=== PATIENT | female | born 1965 | race Caucasian/White ===

== ENCOUNTER 2016-08-11 00:18 | Emergency (ER) | payer MEDICARE, MEDICAID | END 2016-08-11 01:20 | disposition home or self-care (01) | LOC: D.ER 00:18 | DX: F41.9 Anxiety disorder, unspecified (principal); F31.9 Bipolar disorder, unspecified; M54.5 Low back pain; M51.36 Other intervertebral disc degeneration, lumbar region; F17.200 Nicotine dependence, unspecified, uncomplicated ==

== ENCOUNTER 2017-01-22 13:00 | Emergency (ER) | payer MEDICARE, MEDICAID ==
[2017-01-22 13:26] LABS: BASOPHILS 0.2 % (0-2); EOSINOPHILS 0.9 % (0-7); HEMOGLOBIN 14.7 g/dL (12-16); IMMATURE GRANULOCYTES 0.2 % (0-5); LYMPHOCYTES 14.8 % (15-50); MCH 29.6 pg (26.0-34.0); MCHC 34.2 g/dL (31.0-37.0); MCV 86.7 fL (80.0-100.0); MEAN PLATELET VOLUME 9.8 fL (7.4-10.4); MONOCYTES 2.8 % (2-11); NEUTROPHILS 81.1 % (40-80); PLATELET COUNT 218 10x3/uL (130-400); RBC 4.96 10x6/uL (4.00-5.40); RDW 13.3 % (11.5-14.5); WBC 8.2 10x3/uL (4.8-10.8)
[2017-01-22 13:56] LABS: APPEARANCE CLEAR (CLEAR); BILIRUBIN NEGATIVE (NEGATIVE); COLOR STRAW (YELLOW); GLUCOSE NEGATIVE (NEGATIVE); KETONE NEGATIVE (NEGATIVE); LEUKOCYTE ESTERASE NEGATIVE (NEGATIVE); NITRITE NEGATIVE (NEGATIVE); PROTEIN NEGATIVE (NEGATIVE); SPECIFIC GRAVITY 1.005 (1.005-1.020); UROBILINOGEN NORMAL (NORMAL)
[2017-01-22 14:03] LABS: INR 0.97 (0.85-1.17); PROTIME 12.8 SECONDS (11.6-15.0)
[2017-01-22 14:04] LABS: ALBUMIN 3.7 g/dL (3.4-5.0); ALKALINE PHOSPHATASE 79 U/L (46-116); ALT (SGPT) 26 U/L (10-68); CALC OSMOLALITY 280 mosm/kg (275-300); CALCIUM 9.2 mg/dL (8.5-10.1); CARBON DIOXIDE 26.7 mmol/L (21.0-32.0); CHLORIDE - SERUM 104 mmol/L (98-107); CREATININE - SERUM 0.7 mg/dL (0.6-1.3); GLUCOSE 113 mg/dL (74-106); POTASSIUM - SERUM 3.7 mmol/L (3.5-5.1); PROTEIN - SERUM 6.8 g/dL (6.4-8.2); SODIUM 141 mmol/L (136-145); UREA NITROGEN 11 mg/dL (7-18); eGFR NON AFRICAN AMERICAN > 90 mL/min (90-120)
[2017-01-22 14:06] LABS: UDS - AMPHET NEGATIVE QUAL (NEGATIVE); UDS - BARB NEGATIVE QUAL (NEGATIVE); UDS - BENZO NEGATIVE QUAL (NEGATIVE); UDS - COCAINE NEGATIVE QUAL (NEGATIVE); UDS - METH NEGATIVE QUAL (NEGATIVE); UDS - OPIATE NEGATIVE QUAL (NEGATIVE); UDS - PCP NEGATIVE QUAL (NEGATIVE); UDS - THC NEGATIVE QUAL (NEGATIVE)
[2017-01-22 14:10] LABS: CREATINE KINASE 86 UL (21-215); TROPONIN-I < 0.017 ng/mL (0.000-0.060)
== END 2017-01-22 20:30 | disposition home or self-care (01) ==
LOC: D.ER 13:00
PROVIDERS: Emergency Medicine
DX: F41.9 Anxiety disorder, unspecified (principal); R21 Rash and other nonspecific skin eruption

== ENCOUNTER 2019-05-05 21:49 | Inpatient (IN) | payer MEDICARE, MEDICAID ==
[~2019-05-05] VITALS: Ht 165.1 cm; Wt 71.7 kg
[2019-05-05] MEDS ORDERED: LEXAPRO5 MG PO (21:55)
[2019-05-05] MEDS ORDERED: TOPROL XL25 MG (21:55)
[2019-05-05] MEDS ORDERED: XANAX1 MG PO (21:55)
[2019-05-05 22:14] LABS: BASOPHILS 0.1 % (0-2); EOSINOPHILS 0.2 % (0-7); HEMATOCRIT 48.3 % (36.0-48.0); HEMOGLOBIN 17.5 g/dL (12-16); IMMATURE GRANULOCYTES 0.3 % (0-5); LYMPHOCYTES 13.1 % (15-50); MCH 30.8 pg (26.0-34.0); MCHC 36.2 g/dL (31.0-37.0); MEAN PLATELET VOLUME 9.2 fL (7.4-10.4); NEUTROPHILS 79.3 % (40-80); RBC 5.68 10x6/uL (4.00-5.40); RDW 12.5 % (11.5-14.5); WBC 19.3 10x3/uL (4.8-10.8)
[2019-05-05 22:15] LABS: PLATELET COUNT 290 10x3/uL (130-400)
[2019-05-05 22:36] LABS: ALBUMIN 4.4 g/dL (3.4-5.0); ALKALINE PHOSPHATASE 85 U/L (46-116); ALT (SGPT) 41 U/L (10-68); BILIRUBIN - TOTAL 1.17 mg/dL (0.2-1.3); CALC OSMOLALITY 284 mosm/kg (275-300); CALCIUM 9.8 mg/dL (8.5-10.1); CARBON DIOXIDE 30.9 mmol/L (21.0-32.0); CHLORIDE - SERUM 102 mmol/L (98-107); CREATININE - SERUM 0.8 mg/dL (0.6-1.3); GLUCOSE 117 mg/dL (74-106); POTASSIUM - SERUM 3.1 mmol/L (3.5-5.1); PROTEIN - SERUM 8.9 g/dL (6.4-8.2); SODIUM 141 mmol/L (136-145); UREA NITROGEN 20 mg/dL (7-18); eGFR NON AFRICAN AMERICAN 80 mL/min (90-120)
[2019-05-05 22:47] LABS: AMYLASE - SERUM 79 U/L (25-115); CKMB 1.5 U/L (0.0-3.6); CREATINE KINASE 80 UL (21-215); LIPASE 125 U/L (73-393); TROPONIN-I < 0.017 ng/mL (0.000-0.060)
--- NOTE | 2019-05-06 00:25 | NUR ---
URINE TO THE LAB
--- NOTE | 2019-05-06 00:25 | NUR ---
NEIGHBOR, SONIA ALEXANDER [phone] WILL COME PICK HER UP WHEN NEEDED.
[2019-05-06 00:36] LABS: APPEARANCE CLEAR (CLEAR); COLOR DK YELLOW (YELLOW); GLUCOSE NEGATIVE (NEGATIVE); NITRITE NEGATIVE (NEGATIVE); PROTEIN 2+ mg/dL (NEGATIVE)
[2019-05-06 00:37] LABS: BILIRUBIN NEGATIVE (NEGATIVE); KETONE NEGATIVE (NEGATIVE); UROBILINOGEN NORMAL (NORMAL)
[2019-05-06 00:38] LABS: BACTERIA FEW /hpf (NEGATIVE); EPITHELIAL CELLS 0-5 /hpf (0-5); MUCUS <1+ /lpf (NONE SEEN); RED CELLS - URINE 0-5 /hpf (0-5); WHITE CELLS - URINE 0-5 /hpf (NEGATIVE)
[2019-05-06 00:52] LABS: UDS - AMPHET POSITIVE QUAL (NEGATIVE); UDS - BARB NEGATIVE QUAL (NEGATIVE); UDS - BENZO POSITIVE QUAL (NEGATIVE); UDS - COCAINE NEGATIVE QUAL (NEGATIVE); UDS - OPIATE POSITIVE QUAL (NEGATIVE); UDS - PCP NEGATIVE QUAL (NEGATIVE); UDS - THC NEGATIVE QUAL (NEGATIVE)
[2019-05-06] MEDS ORDERED: ST. JOHN'S WOR300 MG PO (03:01)
[2019-05-06] MEDS ORDERED: MELATONIN5 M3 PO (03:02)
[2019-05-06 03:27] VITALS: BP 141/77; BMI 26.3
[2019-05-06 04:00] VITALS: BP 141/77
[2019-05-06 06:32] LABS: BASOPHILS 0.1 % (0-2); EOSINOPHILS 0.4 % (0-7); HEMOGLOBIN 14.6 g/dL (12-16); IMMATURE GRANULOCYTES 0.2 % (0-5); LYMPHOCYTES 20.6 % (15-50); MCH 30.3 pg (26.0-34.0); MCHC 34.8 g/dL (31.0-37.0); MEAN PLATELET VOLUME 9.1 fL (7.4-10.4); MONOCYTES 8.9 % (2-11); NEUTROPHILS 69.8 % (40-80); PLATELET COUNT 237 10x3/uL (130-400); RBC 4.82 10x6/uL (4.00-5.40); RDW 12.7 % (11.5-14.5)
[2019-05-06 06:34] LABS: MCV 87.1 fL (80.0-100.0)
[2019-05-06 07:00] LABS: ALBUMIN 3.4 g/dL (3.4-5.0); ALKALINE PHOSPHATASE 71 U/L (46-116); ALT (SGPT) 34 U/L (10-68); AMYLASE - SERUM 106 U/L (25-115); BILIRUBIN - TOTAL 0.99 mg/dL (0.2-1.3); CALC OSMOLALITY 288 mosm/kg (275-300); CALCIUM 8.6 mg/dL (8.5-10.1); CARBON DIOXIDE 30.9 mmol/L (21.0-32.0); CHLORIDE - SERUM 106 mmol/L (98-107); CREATININE - SERUM 0.8 mg/dL (0.6-1.3); GLUCOSE 107 mg/dL (74-106); LIPASE 253 U/L (73-393); POTASSIUM - SERUM 3.5 mmol/L (3.5-5.1); SODIUM 144 mmol/L (136-145); UREA NITROGEN 18 mg/dL (7-18); eGFR NON AFRICAN AMERICAN 80 mL/min (90-120)
[2019-05-06 08:47] VITALS: BP 113/72
[2019-05-06 13:13] VITALS: Ht 165.1 cm; Wt 71.7 kg
[2019-05-06 13:38] VITALS: BP 103/62
[2019-05-06 16:45] VITALS: BP 119/64
[2019-05-06 20:00] VITALS: BP 121/70
[2019-05-07] VITALS: BP 115/75
[2019-05-07 04:00] VITALS: BP 118/69
--- NOTE | 2019-05-07 07:15 | NUR ---
BEDSIDE REPORT RECIEVED, PATIENT SITTING UP IN BED WITH NO COMPLAINTS. IV INTACT. REFUSED NGT LAST NIGHT AFTER CAME OUT. PATIENT SCDS NOT ON. NEEDS MACHINE. CALL LIGHT WITHIN REACH.
[2019-05-07 07:35] LABS: BASOPHILS 0.2 % (0-2); EOSINOPHILS 1.4 % (0-7); HEMATOCRIT 38.1 % (36.0-48.0); HEMOGLOBIN 12.9 g/dL (12-16); IMMATURE GRANULOCYTES 0.3 % (0-5); LYMPHOCYTES 17.9 % (15-50); MCH 30.1 pg (26.0-34.0); MCHC 33.9 g/dL (31.0-37.0); MEAN PLATELET VOLUME 9.1 fL (7.4-10.4); MONOCYTES 5.4 % (2-11); NEUTROPHILS 74.8 % (40-80); PLATELET COUNT 192 10x3/uL (130-400); RBC 4.28 10x6/uL (4.00-5.40); RDW 12.9 % (11.5-14.5); WBC 10.3 10x3/uL (4.8-10.8)
[2019-05-07 07:52] LABS: CALCIUM 8.3 mg/dL (8.5-10.1); CHLORIDE - SERUM 104 mmol/L (98-107); GLUCOSE 76 mg/dL (74-106); POTASSIUM - SERUM 3.5 mmol/L (3.5-5.1); SODIUM 138 mmol/L (136-145)
[2019-05-07 08:03] LABS: CALC OSMOLALITY 274 mosm/kg (275-300); CARBON DIOXIDE 22.4 mmol/L (21.0-32.0); CREATININE - SERUM 0.5 mg/dL (0.6-1.3); UREA NITROGEN 13 mg/dL (7-18); eGFR NON AFRICAN AMERICAN > 90 mL/min (90-120)
[2019-05-07 08:46] VITALS: BP 116/72
--- NOTE | 2019-05-07 10:15 | NUR ---
PATIENT IN BED WITH IV INTACT. WAITING TO GET BARIUM SWALLOW. CALL LIGHT WITHIN REACH.
--- NOTE | 2019-05-07 11:19 | NUR ---
PATIENT IN BED WITH IV INTACT. NO COMPLAINTS OR SIGNS OF DISTRESS. TELE ON. CALL LIGHT WITHIN REACH.
[2019-05-07 12:54] LABS: MAGNESIUM - SERUM 1.6 mg/dL (1.8-2.4); PHOSPHOROUS 3.4 mg/dL (2.5-4.9)
[2019-05-07 13:54] VITALS: BP 117/67
--- NOTE | 2019-05-07 14:50 | NUR ---
PATIENT IN BED WITH IV INTACT. NO COMPLAINTS. CALL LIGHT WITHIN REACH.
[2019-05-07 16:47] VITALS: BP 115/61
--- NOTE | 2019-05-07 19:24 | NUR ---
PATIENT IN BED WITH IV INTACT. NO COMPLAINTS. CALL LIGHT WITHIN REACH. BEDSIDE REPORT GIVEN.
[2019-05-07 19:46] VITALS: BP 110/62
--- NOTE | 2019-05-07 20:00 | NUR ---
RESTING IN BED ALERT AND ORIENTIATED, DENIES NAUSEA OR VOMITING, GOOD BOWEL SOUNDS STATES HAD BM EARLIER TODAY, DENIES PAIN HAS DILAUDID ADOPTION MANAGER IN USE, SEE SHIFT ASSESSMENT, CALL LIGHT IN REACH, FAMILY MEMBER AT BEDSIDE
[2019-05-08 04:00] VITALS: BP 124/73
[2019-05-08 07:48] LABS: BASOPHILS 0.2 % (0-2); EOSINOPHILS 1.1 % (0-7); HEMATOCRIT 38.6 % (36.0-48.0); HEMOGLOBIN 13.5 g/dL (12-16); IMMATURE GRANULOCYTES 0.1 % (0-5); LYMPHOCYTES 19.7 % (15-50); MCH 30.2 pg (26.0-34.0); MEAN PLATELET VOLUME 9.3 fL (7.4-10.4); MONOCYTES 4.9 % (2-11); PLATELET COUNT 216 10x3/uL (130-400); RBC 4.47 10x6/uL (4.00-5.40); RDW 12.5 % (11.5-14.5)
[2019-05-08 07:49] LABS: MCV 86.4 fL (80.0-100.0)
--- NOTE | 2019-05-08 08:00 | NUR ---
PATIENT IN BED WITH IV INTACT. NO COMPLAINTS OR SIGNS OF DISTRESS. FAMILY AT BEDSIDE. CALL LIGHT WITHIN REACH.
[2019-05-08 08:12] LABS: CALC OSMOLALITY 280 mosm/kg (275-300); CALCIUM 8.3 mg/dL (8.5-10.1); CARBON DIOXIDE 26.5 mmol/L (21.0-32.0); CHLORIDE - SERUM 106 mmol/L (98-107); CREATININE - SERUM 0.6 mg/dL (0.6-1.3); GLUCOSE 110 mg/dL (74-106); MAGNESIUM - SERUM 1.9 mg/dL (1.8-2.4); POTASSIUM - SERUM 3.7 mmol/L (3.5-5.1); SODIUM 141 mmol/L (136-145); eGFR NON AFRICAN AMERICAN > 90 mL/min (90-120)
[2019-05-08 08:25] LABS: UREA NITROGEN 9 mg/dL (7-18)
[2019-05-08 09:06] VITALS: BP 126/65
--- NOTE | 2019-05-08 11:00 | NUR ---
PATIENT RECIEVED FULL LIQUIDS. TOLERATING WITH NO PROBLEMS. IV INTACT. NO COMPLAINTS. CALL LIGHT WITHIN REACH.
[2019-05-08 12:52] VITALS: BP 122/72
[2019-05-08 15:49] VITALS: BP 109/51
[2019-05-08 20:00] VITALS: BP 119/72
--- NOTE | 2019-05-08 20:00 | NUR ---
RESTING IN BED EYES CLOSED RESP UNLABORED NO APPARENT DISTRESS, CALL LIGHT IN REACH
[2019-05-09] VITALS: BP 105/60
[2019-05-09 04:00] VITALS: BP 110/64
[2019-05-09 06:15] LABS: BASOPHILS 0.3 % (0-2); EOSINOPHILS 2.3 % (0-7); HEMATOCRIT 40.5 % (36.0-48.0); HEMOGLOBIN 13.9 g/dL (12-16); IMMATURE GRANULOCYTES 0.2 % (0-5); LYMPHOCYTES 31.8 % (15-50); MCH 30.2 pg (26.0-34.0); MCHC 34.3 g/dL (31.0-37.0); MEAN PLATELET VOLUME 10.1 fL (7.4-10.4); MONOCYTES 7.1 % (2-11); NEUTROPHILS 58.3 % (40-80); PLATELET COUNT 201 10x3/uL (130-400); RDW 12.8 % (11.5-14.5)
[2019-05-09 06:21] LABS: WBC 6.2 10x3/uL (4.8-10.8)
[2019-05-09 06:28] LABS: CALC OSMOLALITY 280 mosm/kg (275-300); CALCIUM 8.4 mg/dL (8.5-10.1); CARBON DIOXIDE 28.9 mmol/L (21.0-32.0); CHLORIDE - SERUM 107 mmol/L (98-107); CREATININE - SERUM 0.5 mg/dL (0.6-1.3); GLUCOSE 105 mg/dL (74-106); POTASSIUM - SERUM 3.8 mmol/L (3.5-5.1); SODIUM 142 mmol/L (136-145); UREA NITROGEN 8 mg/dL (7-18); eGFR NON AFRICAN AMERICAN > 90 mL/min (90-120)
--- NOTE | 2019-05-09 08:00 | NUR ---
ASSESSMENT PER FLOW SHEET. PT IS WITHOUT DISTRESS.CALL LIGHT IN REACH.
[2019-05-09 08:29] VITALS: BP 123/57
--- NOTE | 2019-05-09 12:29 | NUR ---
WILL GIVE MEDS WHEN PATIENT WAKES UP, PER FAMILY REQUEST.
--- NOTE | 2019-05-09 12:30 | NUR ---
PT IS WITHOUT NEEDS.CALL LIGHT IN REACH
[2019-05-09 12:51] VITALS: BP 118/56
[2019-05-09 16:42] VITALS: BP 131/62
--- NOTE | 2019-05-09 17:36 | MORECARE ---
CASE MANAGEMENT DISCHARGE SUMMARY PATIENT: NEHA CLEMENTS UNIT: [id number] ADM DATE: 05/06/19 AGE: 53 : 67 SEX: F ROOM/BED: D.2214 AUTHOR: KACEY VARGAS PHYSICIAN: REFERRING PHYSICIAN: SIVA MARQUEZ MD DATE OF SERVICE: 05/09/19 Discharge Plan Patient Name: NEHA CLEMENTS Facility: [facility]:[place] : 1965 Planned Disposition: Home Anticipated Discharge Date: Discharge Date: Expected LOS: Initial Reviewer: [email or web address] Initial Review Date: 05/09/2019 Generated: 05/09/19 6:36 pm Comments DCP- Discharge Planning Updated by [email or web address]: Darlene eBck on 05/09/19 4:[address] Patient Name: NEHA CLEMENTS Admission Status: ER Accout number: [id number] Admission Date: 05-06-2019 : 1965 Admission Diagnosis:UNSPECIFIED ABDOMINAL PAIN Attending: SIVA MARQUEZ Current LOS: 3 Anticipated DC Date: Planned Disposition: Home Primary Insurance: [facility] MED[employer] SOLUTIONS Discharge Planning Comments: CM MET WITH PATIENT ABOUT DC PLANNING/NEEDS. STATES IS INDEPENDANT AND PLANS TO DC TO HOME. DENIES NEED FOR REHAB, HH OR EQUIPMENT. CM TO FOLLOW AND ASSIST. Check And Transfer Beader: Darlene Beck DCPIA - Discharge Planning Initial Assessment Updated by [id number]: Darlene Beck on 05/09/19 5:33 pm * Is the patient Alert and Oriented? Yes * PCP NEW PCP APPT ON 05/24 * [facility] * Preadmission Environment Home with Family * ADLs Independent * Equipment None * List name and contact numbers for known caregivers / representatives who currently or will assist patient after discharge: MOTHER SALVADOR, * Community resources currently utilized None * Additional services required to return to the preadmission environment? No * Can the patient safely return to the preadmission environment? Yes * Has this patient been hospitalized within the prior 30 days at any hospital? No Patient Name: NEHA CLEMENTS Page [id number] at 1736 All edits/amendments must be made on the electronic document DICTATION DATE: 05/09/191735 [place]UM[place] OPERATOR: NARCISA 05/09/191735 RPT#: [id number] DC DATE: STATUS: ADM IN [facility] [address] [place] [address] END OF REPORT
--- NOTE | 2019-05-09 19:30 | NUR ---
A&O X 4, AMBULATING INDEPENDENTLY IN BED. DENIES PAIN AT THIS TIME, DENIES NEEDS AT THIS TIME. WILL CONTINUE TO MONITOR.
[2019-05-09 20:00] VITALS: BP 122/78
[2019-05-10] VITALS: BP 112/69
[2019-05-10 06:27] LABS: CALC OSMOLALITY 280 mosm/kg (275-300); CARBON DIOXIDE 26.8 mmol/L (21.0-32.0); CHLORIDE - SERUM 105 mmol/L (98-107); CREATININE - SERUM 0.6 mg/dL (0.6-1.3); GLUCOSE 100 mg/dL (74-106); POTASSIUM - SERUM 3.9 mmol/L (3.5-5.1); SODIUM 141 mmol/L (136-145); eGFR NON AFRICAN AMERICAN > 90 mL/min (90-120)
[2019-05-10 06:28] LABS: UREA NITROGEN 12 mg/dL (7-18)
[2019-05-10 06:36] LABS: BASOPHILS 0.2 % (0-2); EOSINOPHILS 2.4 % (0-7); HEMATOCRIT 41.3 % (36.0-48.0); HEMOGLOBIN 14.3 g/dL (12-16); IMMATURE GRANULOCYTES 0.2 % (0-5); LYMPHOCYTES 31.9 % (15-50); MCH 30.2 pg (26.0-34.0); MCHC 34.6 g/dL (31.0-37.0); MCV 87.1 fL (80.0-100.0); MEAN PLATELET VOLUME 10.1 fL (7.4-10.4); MONOCYTES 4.5 % (2-11); NEUTROPHILS 60.8 % (40-80); PLATELET COUNT 220 10x3/uL (130-400); RBC 4.74 10x6/uL (4.00-5.40); RDW 12.8 % (11.5-14.5)
[2019-05-10 06:39] LABS: WBC 8.2 10x3/uL (4.8-10.8)
--- NOTE | 2019-05-10 08:00 | NUR ---
ASSESSMENT PER FLOW SHEET. PT IS WITHOUT DISTRESS.CALL LIGHT IN REACH.
[2019-05-10 08:47] VITALS: BP 119/67
[2019-05-10] MEDS ORDERED: Nicoderm [PBKC] TRANSDERM (10:34)
--- NOTE | 2019-05-10 12:01 | NUR ---
PT WISHES TO GET FLU SHOT FROM [facility] OR [facility]. DISCHARGE INSTRUCTIONS,STATES UNDERSTANDING. WAITING ON RIDE.
--- NOTE | 2019-05-10 12:21 | NUR ---
RIDE HERE. PT LEFT UNIT ABULATORY. DECLINES WHEELCHAIR
--- NOTE | 2019-05-10 17:35 | MORECARE ---
CASE MANAGEMENT DISCHARGE SUMMARY PATIENT: NEHA CLEMENTS UNIT: [id number] ADM DATE: 05/06/19 AGE: 53 : 67 SEX: F ROOM/BED: D.2214 AUTHOR: ALICIADOC PHYSICIAN: REFERRING PHYSICIAN: SIVA MARQUEZ MD DATE OF SERVICE: 05/10/19 Discharge Plan Patient Name: NEHA CLEMENTS Facility: [facility]:[place] : 1965 Planned Disposition: Home Anticipated Discharge Date: Discharge Date: 05/10/2019 Expected LOS: Initial Reviewer: [email or web address] Initial Review Date: 05/09/2019 Generated: 05/10/19 6:35 pm Comments DCP- Discharge Planning Updated by [email or web address]: Darlene Beck on 05/09/19 4:[address] Patient Name: NEHA CLEMENTS Admission Status: ER Accout number: [id number] Admission Date: 05-06-2019 : 1965 Admission Diagnosis:UNSPECIFIED ABDOMINAL PAIN Attending: SIVA MARQUEZ Current LOS: 3 Anticipated DC Date: Planned Disposition: Home Primary Insurance: [facility] MEDICARE SOLUTIONS Discharge Planning Comments: CM MET WITH PATIENT ABOUT DC PLANNING/NEEDS. STATES IS INDEPENDANT AND PLANS TO DC TO HOME. DENIES NEED FOR REHAB, HH OR EQUIPMENT. CM TO FOLLOW AND ASSIST. Director Radio News: Darlene Beck DCPIA - Discharge Planning Initial Assessment Updated by [id number]: Darlene Beck on 05/09/19 5:33 pm * Is the patient Alert and Oriented? Yes * PCP NEW PCP APPT ON 05/24 * Pharm[facility] * Preadmission Environment Home with Family * ADLs Independent * Equipment None * List name and contact numbers for known caregivers / representatives who currently or will assist patient after discharge: MOTHER SALVADOR, * Community resources currently utilized None * Additional services required to return to the preadmission environment? No * Can the patient safely return to the preadmission environment? Yes * Has this patient been hospitalized within the prior 30 days at any hospital? No Coverage Notice Reviewer: [id number] Shemar Beck Notice Issued Date-Time: 05/10/2019 11:03 Notice Type: IM Discharge Notice Notice Delivered To: Patient Relationship to Patient: Clinique Counter Manager Name: Delivery Method: HAND - Hand Delivered Alise Days: Prior Verbal Notification: Recipient Understood Notice: Yes Recipient Signature: Yes Med Rec Note Co-signed by Attending: Coverage Notice Comment: Last DP export: 05/09/19 4:36 p Patient Name: NEHA CLEMENTS Page [id number] at 1735 All edits/amendments must be made on the electronic document DICTATION DATE: 05/10/191734 [employer]: NARCISA 05/10/191734 RPT#: [id number] DC DATE:05/10/19 STATUS: DIS IN [facility] [address] [place] [address] END OF REPORT
== END 2019-05-10 12:21 | disposition home or self-care (01) | DRG 389 ==
LOC: D.ER 21:49 → D.MS 05-06 01:47
PROVIDERS: Family Medicine; ADMIT Internal Medicine Nephrology; ATTEND Internal Medicine Nephrology
DX: K56.50 Intestinal adhesions [bands], unspecified as to partial versus complete obstruction (principal); F17.213 Nicotine dependence, cigarettes, with withdrawal; K76.9 Liver disease, unspecified; F15.10 Other stimulant abuse, uncomplicated; I10 Essential (primary) hypertension; E87.6 Hypokalemia; F31.9 Bipolar disorder, unspecified